=== PATIENT | male | born 1930 | race Caucasian/White ===

== ENCOUNTER 2017-05-22 13:21 | Emergency (ER) | payer MEDICARE ==
[~2017-05-22] VITALS: Ht 162.6 cm; Wt 80.0 kg
[~2017-05-22 13:21] MED LIST: ADLT ASA LOW81 MG PO; ATENOLOL25 MG PO; AUGMENTIN875TAB PO; BACTRIM DS1 TAB PO; BENZONATATE200 MG PO; CEPHALEXIN500 MG OR; CHOND PO; CLOPIDOGREL75 MG PO; CORTISPORIN OTI10 ML AS; EDTA PO; FISH OIL1000 MG PO; FLUZONE SPLT1 M1 IM; GLUCO PO; GLUCOSAMINE1 TA1 OR; HM OMEPRAZOLE20 MG PO; LIPITOR40 MG PO; LISINOPRIL2.5 MG PO; LOPRESSOR25 MG PO; LORTAB 5 PO; M2 MAGNESIUM100 MG OR; MAGNESIUM250 M1 PO; MELOXICAM15 MG; MELOXICAM15 MG PO; METFORMIN500 MG PO; METOPROL TAR25 MG PO; MUPIROCIN2 % EX; OXY1; PX ASPIRIN81 M1; ROCEPHIN 1 GM1 GM IM; SIMVASTATIN40 MG PO; SIMVASTATIN80 MG PO; VITAMIN C500 MG PO; VITAMIN D35000 UNIT PO; VITAMINS &; [UNRECOGNIZED DRUG - OTHER]; [UNRECOGNIZED DRUG - OTHER] PO
[2017-05-22 15:25] VITALS: BP 149/71
== END 2017-05-22 15:38 | disposition home or self-care (01) ==
LOC: ED 13:21
DX: R22.32 Localized swelling, mass and lump, left upper limb (principal); Z95.0 Presence of cardiac pacemaker; T82.897A Other specified complication of cardiac prosthetic devices, implants and grafts, initial encounter

== ENCOUNTER 2019-09-17 | Emergency (ER) | payer MEDICARE ==
[~2019-09-17] MED LIST changes: +ELIQUIS5 MG PO; +PROSTATE SR PO; +TRAMADOL HYDROC50 MG PO; +ZITHROMAX250 MG PO
== END 2019-09-17 11:10 | disposition home or self-care (01) ==
PROC: 09C47ZZ Extirpation of Matter from Left External Auditory Canal, Via Natural or Artificial Opening (ICD-10-PCS; principal; 2019-09-17)
DX: T16.2XXA Foreign body in left ear, initial encounter (principal); I10 Essential (primary) hypertension; I25.10 Atherosclerotic heart disease of native coronary artery without angina pectoris; X58.XXXA Exposure to other specified factors, initial encounter; Z95.1 Presence of aortocoronary bypass graft